=== PATIENT | male | born 1975 | race Caucasian/White ===

== ENCOUNTER 2017-08-29 07:53 | Emergency (ER) | payer OTHER ==
[~2017-08-29] VITALS: Ht 172.7 cm; Wt 72.6 kg
[2017-08-29 08:00] VITALS: BP_SYST 122
--- NOTE | 2017-08-29 08:00 | NUR ---
Patient to ER bed 3 to gown for evaluation. Side rails up. Report given to Khadar PACHECO.In full C-spine precautions with hard C-collar and backboard in place.
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
--- NOTE | 2017-08-29 08:08 | NUR ---
ER Dr. Waters at bedside examining patient.
--- NOTE | 2017-08-29 08:35 | NUR ---
Pt went to radiology in stable condition.
--- NOTE | 2017-08-29 08:50 | NUR ---
Pt returned from radiology in stable condition.
--- NOTE | 2017-08-29 09:58 | NUR ---
Patient given written and verbal discharge instructions and verbalizes understanding. ER MD discussed with patient the results and treatment provided. Patient in stable condition. ID arm band removed. Rx of Naproxen, Soma, Tramadol given. Patient educated on pain management and to follow up with PMD. Pain Scale 6/10, pt states that he does not feel he needs pain medication and does not want pain medication unless he truely needs it. Opportunity for questions provided and answered.
== END 2017-08-29 10:01 | disposition home or self-care (01) ==
LOC: SED 07:53
DX: S16.1XXA Strain of muscle, fascia and tendon at neck level, initial encounter (principal); V89.2XXA Person injured in unspecified motor-vehicle accident, traffic, initial encounter; Y93.89 Activity, other specified; Y92.410 Unspecified street and highway as the place of occurrence of the external cause; Y99.8 Other external cause status
CPT/HCPCS: 72040-TC; 72072-TC; 99284